=== PATIENT | female | born 1935 | race Caucasian/White ===

== ENCOUNTER 2024-06-10 14:06 | Inpatient (IN) | payer MEDICARE, SELFPAY ==
[2024-06-10 14:43] LABS: #Basophils 0.09 10x3/uL (0.0-0.2); %Basophils 0.6 % (0.0-1.0); %Eosinophils 0.6 % (0.0-10.0); %Monocytes 7.4 % (0.0-10.0); %Neutrophils 82.4 % (42.0-75.0); Hematocrit 43.7 % (36.0-47.0); Hemoglobin 14.1 g/dL (12.0-16.0); Mean Corpuscular HGB CONC 32.3 g/dL (32.0-36.0); Mean Corpuscular Volume 89.7 fL (78.0-98.0); Mean Platelet Volume 9.3 fL (7.4-10.4); Platelet Count 850 10x3/uL (130-400); Red Blood Cell (RBC) Count 4.87 mill/uL (4.20-5.40)
[2024-06-10 15:00] LABS: ALT (SGPT) 11 U/L (8-55); AST (SGOT) 22 U/L (5-34); Albumin 4.4 g/dL (3.4-4.8); Alkaline Phosphatase 71 U/L (40-110); Anion Gap 18 mmol/L (10-20); BUN (Urea Nitrogen) 33 mg/dL (9.8-20.1); Bilirubin, Total 1.1 mg/dL (0.2-1.2); CK (CPK) 95 U/L (29-168); Calc. Creatinine Clearance 0 mL/min (70-130); Calcium 10.2 mg/dL (7.8-10.44); Carbon Dioxide 25 mmol/L (23-31); Chloride 99 mmol/L (98-107); Estimated GFR 48; Globulin 3.2 g/dL (2.4-3.5); Glucose 265 mg/dL (83-110); Protein, Total 7.6 g/dL (5.8-8.1); Sodium 138 mmol/L (136-145)
[2024-06-10 15:05] LABS: Troponin I 0.115 ng/mL (< 0.028)
[2024-06-10] MEDS ORDERED: Aspirin Chewable 81 MG TAB ONE (16:05)
[2024-06-10] MEDS ORDERED: Dextrose 50% Abboject 50 ML SYRINGE SLOW IVP PRN (17:19)
[2024-06-10] MEDS ORDERED: Glucagon 1 MG/ML KIT IM PRN (17:19)
[2024-06-10] MEDS ORDERED: Dextrose 5% in Water 1,000 ML IV PRN (17:19)
[2024-06-10 18:28] LABS: Troponin I 0.094 ng/mL (< 0.028)
[2024-06-10 19:25] VITALS: BMI 27.2
[2024-06-10] MEDS: Insulin Glargine 30 UNITS/0.3 ML VIAL SC SCH (21:45)
[2024-06-10 23:25] LABS: Troponin I 0.081 ng/mL (< 0.028)
[2024-06-11 06:25] LABS: #Basophils 0.07 10x3/uL (0.0-0.2); %Basophils 0.6 % (0.0-1.0); %Eosinophils 0.7 % (0.0-10.0); %Lymphocytes 12.4 % (21.0-51.0); %Monocytes 8.7 % (0.0-10.0); %Neutrophils 75.9 % (42.0-75.0); Hematocrit 39.6 % (36.0-47.0); Hemoglobin 12.9 g/dL (12.0-16.0); Mean Corpuscular HGB CONC 32.6 g/dL (32.0-36.0); Mean Corpuscular Hemoglobin 29.1 pg (27.0-31.0); Mean Corpuscular Volume 89.2 fL (78.0-98.0); Mean Platelet Volume 9.3 fL (7.4-10.4); Platelet Count 606 10x3/uL (130-400); RBC Distribution Width 17.2 % (11.5-14.5); Red Blood Cell (RBC) Count 4.44 mill/uL (4.20-5.40)
[2024-06-11 06:41] LABS: Anion Gap 15 mmol/L (10-20); BUN (Urea Nitrogen) 32 mg/dL (9.8-20.1); Calc. Creatinine Clearance 42 mL/min (70-130); Calcium 9.5 mg/dL (7.8-10.44); Carbon Dioxide 23 mmol/L (23-31); Chloride 104 mmol/L (98-107); Estimated GFR 51; Glucose 159 mg/dL (83-110); Sodium 138 mmol/L (136-145)
[2024-06-11] MEDS: Insulin Lispro 100 UNIT/ML 10 ML VIAL SC PRN (06:49)
[2024-06-11] MEDS: Enoxaparin 40 MG (0.4 mL) SYRINGE SC SCH (08:48)
[2024-06-11] MEDS: Clopidogrel Bisulfate 75 MG TAB PO SCH (08:48)
[2024-06-11] MEDS: Aspirin 81 mg Enteric Coated Tablet PO SCH (08:48)
[2024-06-11] MEDS: Docusate 100 MG CAP PO SCH ×2 (11:19→21:51)
[2024-06-11] MEDS: Ondansetron ODT 4 MG TAB PO PRN (11:19)
[2024-06-11] MEDS ORDERED: tiZANidine HCl 4 MG TAB PO PRN (14:18)
[2024-06-11] MEDS: Acetaminophen 325 MG TAB PO PRN (16:27)
[2024-06-11] MEDS: Perflutren Lipid Microspheres 1.1 MG/ML VIAL ONE (16:39)
[2024-06-11 17:18] VITALS: BMI 27.2
[2024-06-11] MEDS ORDERED: Metoprolol Tartrate 25 MG TAB PO SCH (21:00)
[2024-06-11] MEDS: Bumetanide 1 MG TAB PO SCH (21:51)
[2024-06-11] MEDS: Metoprolol Tartrate 25 MG TAB PO SCH (21:51)
[2024-06-11] MEDS: Pantoprazole DR 40 MG TAB PO SCH (21:51)
[2024-06-12 04:54] LABS: #Basophils 0.07 10x3/uL (0.0-0.2); %Basophils 0.7 % (0.0-1.0); %Lymphocytes 15.2 % (21.0-51.0); %Monocytes 8.2 % (0.0-10.0); %Neutrophils 73.8 % (42.0-75.0); Hematocrit 37.1 % (36.0-47.0); Hemoglobin 12.1 g/dL (12.0-16.0); Mean Corpuscular HGB CONC 32.6 g/dL (32.0-36.0); Mean Corpuscular Hemoglobin 29.2 pg (27.0-31.0); Mean Corpuscular Volume 89.4 fL (78.0-98.0); Mean Platelet Volume 9.8 fL (7.4-10.4); Platelet Count 615 10x3/uL (130-400); Red Blood Cell (RBC) Count 4.15 mill/uL (4.20-5.40)
[2024-06-12 05:01] LABS: Anion Gap 14 mmol/L (10-20); BUN (Urea Nitrogen) 29 mg/dL (9.8-20.1); Calc. Creatinine Clearance 43 mL/min (70-130); Calcium 9.4 mg/dL (7.8-10.44); Carbon Dioxide 27 mmol/L (23-31); Chloride 100 mmol/L (98-107); Estimated GFR 53; Glucose 165 mg/dL (83-110); Sodium 137 mmol/L (136-145)
[2024-06-12 05:25] LABS: Free T4 (Free Thyroxine) 1.18 ng/dL (0.70-1.48); Thyroid Stimulating Hormone 1.3716 uIU/mL (0.35-4.94)
[2024-06-12] MEDS: Levothyroxine Sodium 88 MCG TAB PO SCH (06:47)
[2024-06-12] MEDS ORDERED: Empagliflozin 10 MG TAB PO SCH (09:00)
[2024-06-12] MEDS: DULoxetine 30 MG CAP PO SCH (09:23)
[2024-06-12] MEDS: Isosorbide Mononitrate 60 MG ER.TAB PO SCH (09:23)
[2024-06-12] MEDS: Clopidogrel Bisulfate 75 MG TAB PO SCH (09:23)
[2024-06-12] MEDS: Empagliflozin 10 MG TAB PO SCH (09:24)
[2024-06-12] MEDS: Ergocalciferol 1.25 MG(50,000 UNITS) CAP PO SCH (09:24)
[2024-06-12] MEDS ORDERED: [UNRECOGNIZED DRUG - OTHER] FS SCH (19:30)
[2024-06-13] MEDS: Famotidine/PF 20 mg/2ml Vial SLOW IVP SCH (01:21)
[2024-06-13] MEDS ORDERED: Midazolam HCl 2 mg/2 ml Vial ONE ×2 (08:19→10:54)
[2024-06-13] MEDS ORDERED: Heparin 10,000 UNITS/ 10 ML VIAL ONE ×2 (08:19→10:54)
[2024-06-13] MEDS ORDERED: fentaNYL 50 mcg/mL 1 mL Vial ONE ×2 (08:19→10:54)
[2024-06-13] MEDS ORDERED: Nitroglycerin 50 MG/250 ML BOT 0 ML ONE (08:20)
[2024-06-13] MEDS ORDERED: Nitroglycerin 50 MG/250 ML BOT 250 ML ONE (10:55)
[2024-06-13] MEDS ORDERED: Iopamidol 370 76% 100 ML VIAL ONE (11:12)
[2024-06-13] MEDS ORDERED: Nitroglycerin 0.4 MG TAB (25 Tab Bottle) SL PRN (12:06)
[2024-06-13] MEDS ORDERED: Sodium Chloride 0.9% 200 ML IV PRN (12:06)
[2024-06-13] MEDS: Sodium Chloride 0.9% 250 ML IV SCH (12:30)
[2024-06-13] MEDS ORDERED: Polyethylene Glycol 3350 17 GM Packet PO PRN (14:22)
[2024-06-13] MEDS: Sacubitril 24MG/Valsartan 26 MG TAB PO SCH (21:07)
[2024-06-13] MEDS: Senokot S 8.6-50 MG TAB PO SCH (21:09)
[2024-06-13] MEDS: Insulin Lispro 100 UNIT/ML 10 ML VIAL SC PRN (21:09)
[2024-06-14 04:23] LABS: #Basophils 0.09 10x3/uL (0.0-0.2); %Basophils 0.6 % (0.0-1.0); %Eosinophils 0.5 % (0.0-10.0); %Lymphocytes 8.5 % (21.0-51.0); %Monocytes 8.4 % (0.0-10.0); %Neutrophils 80.1 % (42.0-75.0); Hematocrit 39.1 % (36.0-47.0); Hemoglobin 13.2 g/dL (12.0-16.0); Mean Corpuscular HGB CONC 33.8 g/dL (32.0-36.0); Mean Corpuscular Hemoglobin 28.8 pg (27.0-31.0); Mean Corpuscular Volume 85.4 fL (78.0-98.0); Mean Platelet Volume 9.8 fL (7.4-10.4); Platelet Count 824 10x3/uL (130-400); RBC Distribution Width 16.7 % (11.5-14.5); Red Blood Cell (RBC) Count 4.58 mill/uL (4.20-5.40)
[2024-06-14 04:49] LABS: Anion Gap 17 mmol/L (10-20); BUN (Urea Nitrogen) 36 mg/dL (9.8-20.1); Calc. Creatinine Clearance 32 mL/min (70-130); Calcium 9.6 mg/dL (7.8-10.44); Carbon Dioxide 27 mmol/L (23-31); Chloride 95 mmol/L (98-107); Estimated GFR 38; Glucose 164 mg/dL (83-110); Magnesium 1.5 mg/dL (1.6-2.6); Potassium 3.7 mmol/L (3.5-5.1); Sodium 135 mmol/L (136-145)
[2024-06-14] MEDS: Magnesium 2 GM/50 ML(in water) 2 GM in Premix 1 BAG IVPB SCH (07:03)
[2024-06-14] MEDS: Sodium Chloride 0.9% 250 ML IV SCH (07:04)
[2024-06-14] MEDS: Isosorbide Mononitrate 30 MG ER.TAB PO SCH (08:16)
[2024-06-14] MEDS ORDERED: Empagliflozin 10 MG TAB PO SCH (09:00)
[2024-06-14] MEDS: Cephalexin 250 MG CAP PO SCH (12:17)
[2024-06-14] MEDS: Triple Antibiotic Ointment 15 GM TUBE TOP SCH (12:17)
[2024-06-14 12:39] VITALS: BP 116/58; TEMP 98.4
== END 2024-06-14 14:00 | disposition home or self-care (01) | DRG 287 ==
LOC: ERS 14:06 → 2NO 16:20 → OBSVTOIN 06-12 13:18
PROVIDERS: ADMIT Internal Medicine; ATTEND Internal Medicine
PROC: 4A023N7 Measurement of Cardiac Sampling and Pressure, Left Heart, Percutaneous Approach (ICD-10-PCS; principal; 2024-06-13)
PROC: B2111ZZ Fluoroscopy of Multiple Coronary Arteries using Low Osmolar Contrast (ICD-10-PCS; 2024-06-13)
PROC: B2151ZZ Fluoroscopy of Left Heart using Low Osmolar Contrast (ICD-10-PCS; 2024-06-13)
DX: I42.0 Dilated cardiomyopathy (principal); I50.22 Chronic systolic (congestive) heart failure; I25.10 Atherosclerotic heart disease of native coronary artery without angina pectoris; M19.90 Unspecified osteoarthritis, unspecified site; E03.9 Hypothyroidism, unspecified; F32.A Depression, unspecified; I11.0 Hypertensive heart disease with heart failure; E11.9 Type 2 diabetes mellitus without complications; Z79.899 Other long term (current) drug therapy; Z95.1 Presence of aortocoronary bypass graft; Z98.890 Other specified postprocedural states; Z66 Do not resuscitate; Z79.82 Long term (current) use of aspirin; Z79.4 Long term (current) use of insulin; I49.5 Sick sinus syndrome
CPT/HCPCS: 0439T; 36415; 36416; 70450; 71045; 72125; 80048; 80053; 82306; 82550; 83735; 83880; 84439; 84443; 84484; 85025; 93005; 93455; 93459; 96372; 99152; 99153; C1769; C1887; G0378; G0390; J1644; J1650; J1815; J2250; J3010; J3475; J3490; J7030; Q0162; Q9957; Q9967